=== PATIENT | male | born 1965 | race Caucasian/White ===

== ENCOUNTER 2016-06-22 09:58 | Observation (INO) | payer OTHER ==
[~2016-06-22] VITALS: Ht 188 cm; Wt 105.8 kg
[~2016-06-22 09:58] MED LIST: ASPI-621 PO; ATOR20TA9 PO; CARV6.252 PO; CLOP75TA PO; FAMO20TA7 PO; LISI5TAB7 PO; METF500T9 PO; NITR0.4T SL; TRUJEO INJ
[2016-06-22] MEDS ORDERED: SODIUM CHLORIDE 0.9% 1,000 ML IV SCH (10:20)
[2016-06-22 10:26] VITALS: BP 153/84
[2016-06-22] MEDS ORDERED: BISACODYL 10 MG SUPP PR PRN (10:30)
[2016-06-22] MEDS ORDERED: BISACODYL 5 MG EC TABLET PO PRN (10:30)
[2016-06-22] MEDS ORDERED: ASPIRIN 325 MG TABLET EC PO ONE (10:30)
[2016-06-22] MEDS ORDERED: ZOLPIDEM 5MG TABLET PO PRN (10:30)
[2016-06-22] MEDS ORDERED: ONDANSETRON 2MG/ML, 2ML IVPush PRN (10:30)
[2016-06-22] MEDS ORDERED: CLOP75TA22 PO (10:41)
[2016-06-22] MEDS ORDERED: NITR0.4T SL (10:41)
[2016-06-22] MEDS ORDERED: FAMO20TA7 PO (10:41)
[2016-06-22] MEDS ORDERED: CARV6.252 PO (10:41)
[2016-06-22] MEDS ORDERED: LISI2.5T PO (10:41)
[2016-06-22] MEDS ORDERED: ASPI-621 PO (10:41)
[2016-06-22] MEDS ORDERED: ATOR20TA9 PO (10:41)
[2016-06-22] MEDS ORDERED: LIDOCAINE 2%, 20ML ONE (11:38)
[2016-06-22] MEDS ORDERED: MIDAZOLAM 1 MG/ML, 5ML ONE (11:38)
[2016-06-22] MEDS ORDERED: FENTANYL PF 100 MCG/2ML ONE (11:38)
[2016-06-22] MEDS ORDERED: BIVALIRUDIN 250 MG ONE (12:29)
[2016-06-22] MEDS ORDERED: PRASUGREL 10 MG TABLET ONE (12:29)
[2016-06-22] MEDS ORDERED: NITROGLYCERIN 0.4 MG BOTTLE (25 TABS) SL PRN (17:00)
[2016-06-22 18:50] VITALS: BP 156/78
[2016-06-22 19:20] LABS: IS PT STATUS REG ER OR PRE ER? NO
[2016-06-22] MEDS: CARVEDILOL 6.25 MG TABLET PO SCH (19:57)
[2016-06-22] MEDS: ACETAMINOPHEN 325 MG TABLET PO PRN (19:58)
[2016-06-22] MEDS ORDERED: metFORMIN XR 500 MG TAB.ER.24H PO SCH (21:00)
[2016-06-22] MEDS ORDERED: FAMOTIDINE 20 MG TABLET PO SCH ×2 (21:00)
[2016-06-22] MEDS ORDERED: ATORVASTATIN 20 MG TABLET PO SCH (21:00)
[2016-06-23 02:37] VITALS: BP 127/75
[2016-06-23] MEDS: ACETAMINOPHEN 325 MG TABLET PO PRN (03:36)
[2016-06-23 06:17] LABS: BLOOD UREA NITROGEN 7 mg/dL (7-18)
[2016-06-23 08:09] VITALS: BP 128/70
[2016-06-23] MEDS: CARVEDILOL 6.25 MG TABLET PO SCH (08:20)
[2016-06-23] MEDS ORDERED: PRASUGREL 10 MG TABLET PO SCH ×2 (09:00)
[2016-06-23] MEDS ORDERED: CLOPIDOGREL 75 MG TABLET PO SCH (09:00)
[2016-06-23] MEDS ORDERED: ASPIRIN 81 MG TABLET EC PO SCH (09:00)
[2016-06-23] MEDS ORDERED: LISINOPRIL 5 MG TABLET PO SCH (09:00)
[2016-06-23] MEDS ORDERED: PRAS10TA4 PO (09:07)
== END 2016-06-23 13:00 | disposition home or self-care (01) ==
LOC: CACL 09:58 → ORIP 12:58 → 5SO 16:14 → DCLOUNGE 06-23 12:36
PROVIDERS: ADMIT Internal Medicine Cardiovascular Disease; ATTEND Internal Medicine Cardiovascular Disease
DX: I25.110 Atherosclerotic heart disease of native coronary artery with unstable angina pectoris (principal); I10 Essential (primary) hypertension; E78.5 Hyperlipidemia, unspecified; E11.65 Type 2 diabetes mellitus with hyperglycemia; E11.8 Type 2 diabetes mellitus with unspecified complications; R93.1 Abnormal findings on diagnostic imaging of heart and coronary circulation
CPT/HCPCS: 36415; 80048; 82040; 84484; 85014; 85018; 93005; 93306; 93458; C1769; C1874; C1887; C1894; C9600; G0378; J0583; J2250; J3010; J3490; Q9967

== ENCOUNTER 2017-01-08 11:05 | Emergency (ER) | payer OTHER ==
[~2017-01-08] VITALS: Ht 188 cm; Wt 103.3 kg
[~2017-01-08 11:05] MED LIST changes: +CLOP75TA52 PO; +LISI2.5T PO; +PRAS10TA4 PO
[2017-01-08] MEDS ORDERED: INSU300I SQ (11:31)
[2017-01-08] MEDS ORDERED: CLOP75TA PO (11:31)
[2017-01-08 12:21] LABS: ASPARTATE AMINO TRANSFERASE 70 U/L (15-37); BLOOD UREA NITROGEN 10 mg/dL (7-18)
[2017-01-08 12:28] LABS: IS PT STATUS REG ER OR PRE ER? YES
[2017-01-08 12:31] LABS: HEMATOCRIT 44.9 % (39.2-51.8); HEMOGLOBIN 15.5 g/dL (13.7-18.0); WHITE BLOOD COUNT 3.9 x10^3/uL (3.4-10)
[2017-01-08 14:08] VITALS: BP 168/74
== END 2017-01-08 14:15 | disposition home or self-care (01) ==
LOC: ED 12:55
DX: R42 Dizziness and giddiness (principal); E11.9 Type 2 diabetes mellitus without complications; E78.00 Pure hypercholesterolemia, unspecified
CPT/HCPCS: 36415; 71010; 80053; 84484; 85025; 85610; 85730; 93005; 99285

== ENCOUNTER → 2018-05-03 | Outpatient (CLI) | payer OTHER ==
[~2018-05-03] MED LIST changes: -ASPI-621 PO; +ASPI81TA45 PO; +ATOR20TA37 PO; -ATOR20TA9 PO; +INSU300I SQ; +REGADENOSON 0.4 MG/5 ML SYRINGE ONE
== END | disposition home or self-care (01) ==
LOC: CFH 07:16
PROVIDERS: ATTEND Internal Medicine Cardiovascular Disease
DX: I34.0 Nonrheumatic mitral (valve) insufficiency (principal); E78.5 Hyperlipidemia, unspecified; E11.9 Type 2 diabetes mellitus without complications; I25.2 Old myocardial infarction; I11.9 Hypertensive heart disease without heart failure
CPT/HCPCS: 78452; 93017; 93306; A9502; J2785